=== PATIENT | male | born 1960 | race Caucasian/White ===

== ENCOUNTER 2018-05-27 09:28 | Emergency (ER) | payer OTHER ==
[~2018-05-27] VITALS: Ht 180.3 cm; Wt 77.1 kg
[2018-05-27] MEDS ORDERED: HYDROMORPHONE 1MG/1ML INJ IM STA (10:50)
[2018-05-27] MEDS ORDERED: CYCLOBENZAPRINE HCL 10 MG TAB PO ONE (11:00)
[2018-05-27] MEDS ORDERED: KETOROLAC TROMETHAMINE 60 MG/2 ML VIAL IM ONE (11:00)
--- NOTE | 2018-05-27 11:53 | Diagnostic Imaging Report ---
PROCEDURE:L-SPINE COMPLETE COMPARISON:None. INDICATIONS:WEDGE FRACTURE FINDINGS: There are 5 lumbar-type vertebral bodies. The vertebral bodies are well-aligned without evidence of significant spondylolisthesis. There are no acute, displaced fractures, lytic or blastic lesions. Vertebral body heights are maintained. Intervertebral disc spaces are relatively well maintained. Mild osteophytosis L1-L2, L4-L5 Bilateral oblique views show no spondylolysis. The sacroiliac joints are unremarkable. Mild atherosclerotic calcification of the abdominal aorta. CONCLUSION: 1. No acute, displaced fracture. Vertebral body heights are preserved. CT lumbar spine is recommended if there is history of trauma and clinical concern for occult fractures. 2. Mild degenerative changes in the lumbosacral spine. Ronn Fuentes M.D. Dictated by: Ronn Fuentes M.D. on 05/27/2018 at 11:58 Electronically approved by: Ronn Fuentes M.D. on 05/27/2018 at 11:58
[2018-05-27] MEDS ORDERED: KETOROLAC TROMETHAMINE 30 MG/ML VIAL IV STA (12:25)
[2018-05-27] MEDS ORDERED: HYDROMORPHONE 1MG/1ML INJ IV STA (12:25)
--- NOTE | 2018-05-27 13:21 | Diagnostic Imaging Report ---
History: Low back pain Comparison studies: None Technique: Axial images were obtained from T11 through the sacrum. Coronal and sagittal images reconstructed from the axial data. Intravenous contrast: None Findings: Number of non-rib bearing vertebral bodies: 5 Alignment: Normal lordosis. No scoliosis. Soft tissues: No prior spinal abnormalities. Atherosclerotic changes of the abdominal aorta Paraspinal muscles: Unremarkable. Vertebrae: No fractures, infection or neoplasm. Degenerative changes: L1-L2: No abnormalities. L2-L3: No abnormalities. L3-L4: No abnormalities. L4-L5: Mild diffuse disc bulge with patent canal and foramina L5-S1: Mild diffuse disc bulge and mild right facet hypertrophy with patent canal and mild right foraminal narrowing Sacroiliac joints: No degenerative changes. IMPRESSION: 1. No acute lumbar abnormality. 2. Patent canal and mild right foraminal narrowing at L5-S1. Signed by: DR Gus Llanes M.D. on 05/27/2018 1:17 PM
[2018-05-27 14:58] VITALS: BP 154/91
== END 2018-05-27 15:09 | disposition home or self-care (01) ==
LOC: ER 09:28
DX: M54.5 Low back pain (principal); S39.012A Strain of muscle, fascia and tendon of lower back, initial encounter; X50.1XXA Overexertion from prolonged static or awkward postures, initial encounter; Y92.007 Garden or yard of unspecified non-institutional (private) residence as the place of occurrence of the external cause; I10 Essential (primary) hypertension
CPT/HCPCS: 72110; 72131; 99284; J1170; J1885